=== PATIENT | female | born 1980 | race Caucasian/White ===

== ENCOUNTER 2021-08-03 15:49 | Outpatient (REF) | payer OTHER, SELFPAY ==
--- NOTE | ~2021-08-03 | XR_ITS ---
EXAMINATION: RIGHT FOOT 3 VIEWS LEFT FOOT 3 VIEWS CLINICAL INFORMATION: Bilateral foot pain COMPARISON: None TECHNIQUE: Right foot 3 views Left foot 3 views FINDINGS: Right foot: No focal soft tissue swelling. Mineralization is normal. No abnormal soft tissue calcification. No fracture or malalignment. Plantar calcaneal spur. Left foot: No focal soft tissue swelling. Mineralization is normal. No abnormal soft tissue calcification. Accessory ossicle adjacent to the cuboid. No fracture or malalignment. Plantar calcaneal spur. XR/XR foot RT min 3V IMPRESSION: No fracture or malalignment. Bilateral plantar calcaneal spurs.
--- NOTE | ~2021-08-03 | XR_ITS ---
EXAMINATION: RIGHT FOOT 3 VIEWS LEFT FOOT 3 VIEWS CLINICAL INFORMATION: Bilateral foot pain COMPARISON: None TECHNIQUE: Right foot 3 views Left foot 3 views FINDINGS: Right foot: No focal soft tissue swelling. Mineralization is normal. No abnormal soft tissue calcification. No fracture or malalignment. Plantar calcaneal spur. Left foot: No focal soft tissue swelling. Mineralization is normal. No abnormal soft tissue calcification. Accessory ossicle adjacent to the cuboid. No fracture or malalignment. Plantar calcaneal spur. XR/XR foot LT min 3V IMPRESSION: No fracture or malalignment. Bilateral plantar calcaneal spurs.
[2021-08-03 16:05] LABS: MANUAL DIFF FLAG NO
[2021-08-03 17:10] LABS: Basophils Absolute Auto 0.1 X10*3/uL (0.0-0.2); Basophils Percent Auto 0.9 % (0-2); Eosinophils Absolute Auto 0.2 X10*3/uL (0.0-0.4); Eosinophils Percent Auto 2.2 % (0-4); Hematocrit 37.7 % (37.0-47.0); Hemoglobin 12.7 g/dl (12.0-16.0); Imm Gran Abs Auto 0.01 X10*3/uL (0.00-0.03); Imm Gran Pct Auto 0.1 % (0.0-0.4); Lymphocytes Absolute Auto 3.1 X10*3/uL (1.2-4.9); Lymphocytes Percent Auto 40.3 % (20-40); Mean Corpuscular HGB Conc 33.7 g/dl (31.0-35.0); Mean Corpuscular Hemoglobin 32.9 pg (27.0-33.0); Mean Corpuscular Volume 97.7 fL (80.0-98.0); Mean Platelet Volume 10.1 fL (9.4-12.3); Monocytes Absolute Auto 0.7 X10*3/uL (0.1-1.2); Monocytes Percent Auto 8.9 % (2-11); Neutrophils Absolute Auto 3.6 x10*3/uL (2.0-8.3); Neutrophils Percent Auto 47.6 % (45-73); Platelet Count 384 X10*3/uL (160-400); Red Blood Count 3.86 X10*6/uL (4.20-5.50); Red Cell Distribution Width 13.7 % (11.0-16.0); White Blood Count 7.6 X10*3/uL (4.8-10.8)
[2021-08-03 17:31] LABS: Alanine Aminotransferase 8 U/L (0-31); Albumin Level 4.6 g/dL (3.5-5.0); Alkaline Phosphatase 53 U/L (39-117); Anion Gap 11 (12-20); Aspartate Amino Transferase 16 U/L (5-31); Bilirubin Total 0.3 mg/dL (0.0-1.0); Blood Urea Nitrogen 11 mg/dL (9-16); C Reactive Protein 0.05 mg/dL (< or = 0.50); Calcium 9.5 mg/dL (8.4-10.2); Carbon Dioxide 26 mmol/L (22-29); Chloride 103 mmol/L (96-108); Cholesterol 271 mg/dL; Estimated Glomerular Filt Rate > 60; Glucose Random 81 mg/dL (60-115); Potassium 4.2 mmol/L (3.3-5.1); Sodium 136 mmol/L (135-145); Total Protein 7.4 g/dL (6.5-8.0)
[2021-08-03 17:56] LABS: Vitamin B12 190 pg/mL (200-900)
== END 2021-08-03 15:50 | disposition home or self-care (01) ==
LOC: HO.LAB 15:49
PROVIDERS: PCP Internal Medicine; Visit Provider Internal Medicine
DX: M79.672 Pain in left foot (principal); M79.671 Pain in right foot; M54.9 Dorsalgia, unspecified; R63.5 Abnormal weight gain
CPT/HCPCS: 36415; 73630; 80053; 82465; 82550; 82607; 85025; 86140

== ENCOUNTER 2021-08-18 07:55 | Outpatient (REF) | payer OTHER, SELFPAY ==
[2021-08-18 09:23] LABS: Cholesterol 241 mg/dL; HDL Cholesterol 47 mg/dL; LDL Cholesterol Calculated 171 mg/dl; Triglycerides 116 mg/dL
== END 2021-08-18 07:56 | disposition home or self-care (01) ==
LOC: HO.LAB 07:55
PROVIDERS: PCP Internal Medicine; Visit Provider Internal Medicine
DX: E78.00 Pure hypercholesterolemia, unspecified (principal)
CPT/HCPCS: 36415; 80061

== ENCOUNTER 2021-10-06 08:51 | Outpatient (REF) | payer OTHER, SELFPAY ==
--- NOTE | ~2021-10-06 | MM_ITS ---
EXAMINATION: MM SCREENING DIGITAL BREAST TOMOSYNTHESIS, BILATERAL CLINICAL INFORMATION: Screening. Asymptomatic. The lifetime risk of breast cancer based on the Tyrer-Cuzick Model is 7%. COMPARISON: Mammography: 07/20/2019, 07/06/2018, 09/30/2013 TECHNIQUE: Digital breast tomosynthesis is performed in both the craniocaudal and mediolateral oblique views along with computer-aided detection (CAD). Synthesized 2D images are generated from the tomosynthesis. Additional exaggerated left CC view is provided. FINDINGS: There are scattered areas of fibroglandular density (ACR BI-RADS breast composition Category b). There are no significant masses, abnormal calcifications, or other abnormalities. Parenchymal pattern is similar to prior studies. No developing density. The axilla and skin contours are unremarkable. MM/MM tomosynthesis screening BI IMPRESSION: No mammographic evidence of malignancy. ASSESSMENT: BI-RADS 1: Negative RECOMMENDATION: Routine annual mammography screening. This patient's information was entered into a reminder system with a target due date for their next mammogram.
== END 2021-10-06 08:52 | disposition home or self-care (01) ==
LOC: HO.MAMMO 08:51
PROVIDERS: Visit Provider Internal Medicine
DX: Z12.31 Encounter for screening mammogram for malignant neoplasm of breast (principal)
CPT/HCPCS: 77063; 77067

== ENCOUNTER → 2023-09-22 09:25 | Outpatient (BNVA) | payer OTHER, SELFPAY | PROVIDERS: PCP Internal Medicine; Visit Provider Physician Assistant Medical | DX: S61.215A Laceration without foreign body of left ring finger without damage to nail, initial encounter (principal); W26.8XXA Contact with other sharp object(s), not elsewhere classified, initial encounter; Z23 Encounter for immunization | CPT/HCPCS: 90715; 99204 ==

== ENCOUNTER → 2023-09-24 14:44 | Outpatient (BNVA) | payer OTHER, SELFPAY | PROVIDERS: PCP Internal Medicine; Visit Provider Physician Assistant Medical | DX: S61.215A Laceration without foreign body of left ring finger without damage to nail, initial encounter (principal); W26.8XXA Contact with other sharp object(s), not elsewhere classified, initial encounter; Z77.21 Contact with and (suspected) exposure to potentially hazardous body fluids | CPT/HCPCS: 99213 ==

== ENCOUNTER → 2023-11-05 14:43 | Outpatient (BNVA) | payer OTHER, SELFPAY | PROVIDERS: PCP Internal Medicine | DX: Z77.21 Contact with and (suspected) exposure to potentially hazardous body fluids (principal); Z23 Encounter for immunization | CPT/HCPCS: 84450; 84460; 87389; 99211 ==

== ENCOUNTER → 2023-12-23 14:52 | Outpatient (BNVA) | payer OTHER, SELFPAY | PROVIDERS: PCP Internal Medicine | DX: Z77.21 Contact with and (suspected) exposure to potentially hazardous body fluids (principal) | CPT/HCPCS: 84450; 84460; 86803; 87389; 99211 ==

== ENCOUNTER → 2024-03-23 10:25 | Outpatient (BNVA) | payer OTHER, SELFPAY | PROVIDERS: PCP Internal Medicine | DX: Z77.21 Contact with and (suspected) exposure to potentially hazardous body fluids (principal) | CPT/HCPCS: 84450; 84460; 86803; 87389; 99211 ==

== ENCOUNTER → 2024-03-25 09:17 | Outpatient (BNVA) | payer OTHER, SELFPAY | PROVIDERS: PCP Internal Medicine | DX: Z77.21 Contact with and (suspected) exposure to potentially hazardous body fluids (principal) ==

== ENCOUNTER 2024-09-22 13:22 | Outpatient (REF) | payer OTHER, SELFPAY | END 2024-09-22 13:23 | disposition home or self-care (01) | LOC: HO.MAMMO 13:22 | PROVIDERS: PCP Internal Medicine; Visit Provider Internal Medicine | DX: Z12.31 Encounter for screening mammogram for malignant neoplasm of breast (principal) | CPT/HCPCS: 77063; 77067 ==

== ENCOUNTER → 2024-09-22 13:45 | Outpatient (BNV) | payer OTHER, SELFPAY | PROVIDERS: PCP Internal Medicine; Visit Provider Internal Medicine | DX: Z12.31 Encounter for screening mammogram for malignant neoplasm of breast (principal) | CPT/HCPCS: 77063; 77067 ==

== ENCOUNTER 2025-03-21 09:59 | Outpatient (AMB) | payer OTHER, SELFPAY ==
--- NOTE | 2025-03-21 09:46 | A.OFFPC_ITS ---
Vital Signs 03/21/25 10:07 Height 5 ft 1.42 in Weight 77.111 kg BMI 31.7 BP 134/88 Blood Pressure Location Lt brachial Position Sitting Respiration 18 Pulse 81 Pulse Source Pulse Oximeter Temp 98.4 F Temp Source Temporal Artery Scan Pulse Oximetry (%) 97 Oxygen Delivery Method Room Air Intake Visit Reasons: New Patient / MARIALUISA / Dr Alejandra - see comments Salicylic Acid Blender Required: No Accompanied by: Self / Same As Patient Allergies Penicillins Allergy (Mild, Unverified 02/17/20 16:32) RASH penicillin V Allergy (Unknown, Verified 06/24/18 00:00) Medication List - Last Reconciled 03/21/25 by DEMARCO Mar acetaminophen ER (Tylenol 8 Hour) 650 mg PO Q12H albuterol sulfate 90 mcg/actuation (Ventolin HFA) inhalation Tobacco use date assessed: 03/21/25 Dental Screening Dental Screen Date: 03/21/25 Did you have a dental visit in the last 12 months?: No Did you have a dental problem in the last 6 months where you did not have access to dental care?: No Was dental information given to patient?: Patient has dentist HPI HPI Comments History of Present Illness Details 45-year-old female with history of asthm a who is a current everyday cigarette smoker presenting to the office today for management of chronic conditions, to establish care, and for annual physical exam. She has not been seen by prior PCP in about 3 years. 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 Not always following a healthy diet. Reports she does not eat much during the day and then will eat more at bedtime. She denies any alcohol use. Currently smoking 5 cigarettes per day, down from 1/2 pack per day. She has been smoking for 30 years and is trying to quit entirely. Does smoke marijuana but no illicit drug use. Asthma-had viral upper respiratory infection about 3 weeks ago. She presented to an urgent care who prescribed prednisone as well as azithromycin. Reports she felt better for about 1 day and then symptoms recurred. She is now having a productive cough with wheezing and dyspnea. No fevers, chills, sore throat, sinus pressure, congestion. She is experiencing sharp left-sided chest pains but no retrosternal chest pressure, lightheadedness, palpitations. FH CAD- concerned about family history of coronary artery disease. Reports mother, maternal grandmother experience fatal GA at age 52. Reports her maternal uncle also experienced GA during his 50s. She denies any anginal chest pains. Interested in referral to Cardiology. Reports she was also diagnosed with a ?hole in her heart? in childhood but did not require follow-up on this. Bilateral facial telangiectasia-interested in referral to Dermatology. Does not consume alcohol Chronic Bilateral low back pain/R sciatica- ongoing years. Did go to physical therapy several years ago without any improvement. Has tried ibuprofen, Tylenol, lidocaine patches. No positive effect. No paresthesias, weakness, saddle anesthesia, bowel/bladder dysfunction. Health Maintenance: Overdue for unattended ground sensor specialist exam-has been years Overdue for mammogram Overdue for colon cancer screening Wears sunscreen with prolonged sun exposure- interested skin cancer screening Overdue for dental exam Due for flu vax ROS: General: No fevers, malaise, unintentional weight loss HEENT: No blurred vision, diplopia. No sore throat, nasal congestion, rhinorrhea, sinus pain, ear pain. No hearing loss Neck - no adenopathy Cardiovascular: No chest pain, palpitations, or leg edema Respiratory: No shortness of breath, wheezing, cough Breast: No pain, palpable lumps, nipple inversion GI: No dysphagia, odynophagia, globus sensation. No abdominal pain, nausea, vomiting, diarrhea, constipation, melena, hematochezia : No dysuria, hematuria, increased urinary frequency, decreased urinary output. 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 No AH/VH. No SI/HI Skin: No rashes or lesions EXAM: Constitutional - Awake and Alert, No apparent distress Eyes - PERRLA, EOMI. Anicteric Ears - external ears normal, canals clear, TMs intact and pearly matta with good cone of light Nose- septum midline, nares clear, no sinus tenderness Mouth/throat- mucosa moist, tongue and uvula midline, no erythema/edema or tonsillar adenopathy. Neck-trachea midline, thyroid symmetric without palpable nodules, no adenopathy Cardiovascular - S1S2, RRR, No edema Respiratory - Normal lung expansion, Normal respiratory effort, No respiratory distress, rhonci/wheezing RLL Gastrointestinal - NT / ND; +BS; No rebound or guarding - No CVA tenderness Extremities - no calf tenderness bilaterally, no swelling Musculoskeletal - Normal inspection, normal ROM Skin - Warm/Dry, no concerning lesions. Telangectasias bilateral face Neurological - Alert & oriented x3, CN II-XII in tact, 5/5 strength BUE and BLE, 2+ patellar reflexes, sensation intact Psychological - Appropriate affect [facility] Medical History (Updated 03/21/25 @ 10:54 by DEMARCO Mar) Asthma Surgical History (Updated 03/21/25 @ 10:33 by DEMARCO Mar) No pertinent past surgical history Family History (Updated 03/21/25 @ 10:34 by DEMARCO Mar) Mother CAD (coronary artery disease), Onset Age: 52 Maternal Grandmother CAD (coronary artery disease), Onset Age: 52 Maternal Uncle CAD (coronary artery disease), Onset Age: 55 Father Pancreatic cancer Dementia Social History Housing: Apartment Patient Tobacco Use Status: Current everyday Tobacco user Cigarettes Per Day: 5 Years Smoked: 30 years e-Cigarette/Vaping Use: Currently Using service: No Current occupational status: employed Current occupation: [employer] Questionnaire PHQ-9 Over the last 2 weeks, how often have you been bothered by any of the following problems? 1. Little interest or pleasure in doing things: more than half the days 2. Feeling down, depressed, or hopeless: more than half the days 3. Trouble falling or staying asleep, or sleeping too much: several days 4. Feeling tired or having little energy: more than half the days 5. Poor appetite or overeating: more than half the days 6. Feeling bad about yourself - or that you are a failure or have let yourself or your family down: several days 7. Trouble concentrating on things, such as reading the newspaper or watching television: several days 8. Moving or speaking so slowly that other people could have noticed. Or the opposite - being so fidgety or restless that you have been moving around a lot more than usual: not at all 9. Thoughts that you would be better off or of hurting yourself in some way: not at all Total score: 11 Source: Developed by Drs. Kirill Dubon, Odette Lu, Scott Kovacs and colleagues, with an educational bo from [employer]. Thrive Questionnaire Date Thrive assessed: 03/21/25 I am a: Patient What is your living situation today?: I have a steady place to live Within the past 12 months, did the food you bought not last and you didn't have the money to get more?: Never true Within the past 12 months, did you worry whether your food would run out before you got money to buy more?: Never true Do you have trouble paying for medicines?: No Do you have trouble getting transportation to medical appointments?: No Do you have trouble paying your heating and electricity bill?: No Do you have trouble taking care of your child, family member or friend?: No Do you have trouble with day-to-day activities such as bathing, preparing meals, shopping, managing finances, etc.?: No Are you currently unemployed and looking for a job?: No Are you interested in more education?: No THRIVE Score: 0 AUDIT C Alcohol Use Questionnaire (AUDIT-C) 1. How often do you have a drink containing alcohol?: Never 3. How often do you have six or more drinks on one occasion?: Never Total Score: 0 CELE-7 AMB Questionnaire CELE-7 Date CELE - 7 assessed: 03/21/25 Feeling nervous, anxious, or on edge: 1 = Several days Not being able to stop or control worryin = Several days Worrying too much about different things: 1 = Several days Trouble relaxin = Several days Being so restless that it is hard to sit still: 1 = Several days Becoming easily annoyed or irritable: 1 = Several days Feeling afraid as if something awful might happen: 1 = Several days Total CELE-7 score (0-4 normal; 5-9 mild; 10-14 moderate; 15-21 severe): 7 Source: Developed by Drs. Kirill Dubon, Odette Lu, Scott Kovacs and colleagues, with an educational bo from [employer]. Physical exam (Primary Care) Vital Signs: Last Vital Signs Temp 98.4 F 03/21/25 10:07 Pulse 81 03/21/25 10:07 Resp 18 03/21/25 10:07 BP 134/88 10/20/25 10:07 Pulse Ox 97 03/21/25 10:07 Oxygen Delivery Method Room Air 03/21/25 10:07 BMI result Body Mass Index 31.7 Tobacco/Smoking Status: Tobacco use Status Tobacco use date assessed 03/21/25 03/21/25 09:47 Patient Tobacco Use Status Current everyday Tobacco 03/21/25 10:10 e-Cigarette/Vaping Use Currently Using 03/21/25 10:10 PHQ-9: PHQ-9 Score PHQ-9: Total score 11 03/21/25 10:30 Thrive Assessment: Date of Thrive Assessment Date Thrive assessed 03/21/25 03/21/25 10:23 Coding Level of Care Code Est Pt Level 4 (00593) New Pt Prev Care 40-64y(37373) Diagnoses Routine medical exam Z00.00 Productive cough R05.8 Chest pain R07.9 Sciatica M54.30 Chronic low back pain M54.50; G89.29 Assessment & Plan Assessment & Plan (1) Routine medical exam: Code(s): Z00.00 - Encounter for general adult medical examination without abnormal findings Category: Medical Plan: 45 year old female presenting for annual physical exam. Plan as below (2) Productive cough: Code(s): R05.8 - Other specified cough Category: Medical Plan: Xr chest ordered. Zpak and prednisone prescribed. Continue albuterol prn. If still symptomatic consider inhaler adjustment and PFT. Cough syrup prn (3) Chest pain: Code(s): R07.9 - Chest pain, unspecified Category: Medical Plan: Chest pain seems atypical. However, given strong family history, stress test ordered and is referred to cardiology for further evaluation (4) Sciatica: Code(s): M54.30 - Sciatica, unspecified side Category: Medical Plan: Referred to ortho. Add meloxicam and gentle exercise. Given asymmetry of the shoulders, also recommend chiropractic evaluation (5) Chronic low back pain: Code(s): M54.50 - Low back pain, unspecified; G89.29 - Other chronic pain Category: Medical Plan: As above Plan Routine screening labs as ordered below Referred for mammogram, Pap smear, cologuard Continue following for annual skin exams and use sun protection-referred for evaluation Annual eye exams Wear seat belt in car Recommend regular exercise and healthy diet Follow-up in the office in 6 months Orders: Orders Basic Metabolic Panel Today Z00.00 - Encounter for general adult medical examination without abnormal findings Complete Blood Count Auto Diff Today Z00.00 - Encounter for general adult medical examination without abnormal findings Lipid Panel Today Z00.00 - Encounter for general adult medical examination without abnormal findings Liver Panel Today Z00.00 - Encounter for general adult medical examination without abnormal findings Vitamin D 25-OH Total Today Z00.00 - Encounter for general adult medical examination without abnormal findings CA echo stress exercise Today R05.8 - Other specified cough, R07.9 - Chest pain, unspecified, Z00.00 - Encounter for general adult medical examination without abnormal findings, Z82.49 - Family history of ischemic heart disease and other diseases of the circulatory system XR chest 2V Today R05.8 - Other specified cough Hemoglobin A1c Today Z00.00 - Encounter for general adult medical examination without abnormal findings TSH reflex Free T4 Today Z00.00 - Encounter for general adult medical examination without abnormal findings MM tomosynthesis screening BI Today Z12.31 - Encounter for screening mammogram for malignant neoplasm of breast Referrals Cardiology Referral R07.9 - Chest pain, unspecified, Z82.49 - Family history of ischemic heart disease and other diseases of the circulatory system BUSINESS RECORDS MANAGER Referral Z12.4 - Encounter for screening for malignant neoplasm of cervix Cologuard Test Z12.11 - Encounter for screening for malignant neoplasm of colon, Z12.12 - Encounter for screening for malignant neoplasm of rectum Orthopedics Referral G89.29 - Other chronic pain, M54.30 - Sciatica, unspecified side, M54.50 - Low back pain, unspecified Dermatology Referral I78.1 - Nevus, non-neoplastic, Z12.83 - Encounter for screening for malignant neoplasm of skin Medications: New meloxicam 15 mg PO DAILY 90 tabs 0RF prednisone 40 mg (2 x 20 mg) PO DAILY 10 tabs 0RF azithromycin (Zithromax Z-Virgil) For 250 mg dose pack: take 500 mg today (day 1), then 250 mg for 4 days (days 2-5) PO 6 tabs 0RF
[2025-03-21 10:07] VITALS: BP 134/88; PULSE 81; RESP 18; TEMP 36.9; O2SAT 97; BMI 31.7
== END 2025-03-21 11:40 | disposition home or self-care (01) ==
PROVIDERS: PCP Physician Assistant; Visit Provider Physician Assistant
DX: Z00.00 Encounter for general adult medical examination without abnormal findings (principal); R05.8 Other specified cough; R07.9 Chest pain, unspecified; M54.30 Sciatica, unspecified side; G89.29 Other chronic pain; M54.50 Low back pain, unspecified

== ENCOUNTER 2025-03-21 09:59 | Outpatient (REF) | payer OTHER, SELFPAY ==
--- NOTE | ~2025-03-21 | XR_ITS ---
EXAMINATION: XR CHEST 2 VIEWS HISTORY: R05.8 - Other specified cough COMPARISON: Comparison is made with the prior examination dated 02/27/2016. FINDINGS: PA and lateral views of the chest are submitted. The lungs are expanded and clear. There is no pleural effusion, pneumothorax, or pulmonary vascular congestion. The heart is normal in size. The bones are intact. XR/XR chest 2V IMPRESSION: No acute cardiopulmonary abnormality. Electronically signed by: Kirill Reilly MD 03/21/2025 11:38 AM EDT
== END 2025-03-21 10:00 | disposition home or self-care (01) ==
LOC: HO.XRAY 09:59
PROVIDERS: PCP Internal Medicine; Visit Provider Physician Assistant
DX: Z00.00 Encounter for general adult medical examination without abnormal findings (principal); R05.8 Other specified cough; R07.9 Chest pain, unspecified; M54.30 Sciatica, unspecified side; M54.50 Low back pain, unspecified; G89.29 Other chronic pain; Z79.899 Other long term (current) drug therapy
CPT/HCPCS: 71046; 99212; 99386

== ENCOUNTER 2025-03-21 11:08 | Outpatient (REF) | payer OTHER, SELFPAY ==
[2025-03-21 12:01] LABS: MANUAL DIFF FLAG NO
[2025-03-21 12:09] LABS: Hematocrit 38.2 % (37.0-47.0); Hemoglobin 13.1 g/dl (12.0-16.0); Imm Gran Abs Auto 0.02 X10*3/uL (0.00-0.03); Imm Gran Pct Auto 0.2 % (0.0-0.4); Lymphocytes Absolute Auto 3.1 X10*3/uL (1.2-4.9); Mean Corpuscular HGB Conc 34.3 g/dl (31.0-35.0); Mean Corpuscular Hemoglobin 32.6 pg (27.0-33.0); Mean Corpuscular Volume 95.0 fL (80.0-98.0); NRBC Abs Auto 0.000 X10*3/uL (0.0-0.012); NRBC Pct Auto 0.0 /100WBC (0.0-0.2); Platelet Count 453 X10*3/uL (160-400); Red Blood Count 4.02 X10*6/uL (4.20-5.50); White Blood Count 11.2 X10*3/uL (4.8-10.8)
[2025-03-21 12:27] LABS: Alanine Aminotransferase 7 U/L (0-31); Albumin Level 4.3 g/dL (3.5-5.0); Alkaline Phosphatase 52 U/L (39-117); Anion Gap 11 (12-20); Aspartate Amino Transferase 19 U/L (5-31); Blood Urea Nitrogen 7 mg/dL (9-16); Calcium 8.9 mg/dL (8.4-10.2); Carbon Dioxide 28 mmol/L (22-29); Chloride 102 mmol/L (96-108); Cholesterol 231 mg/dL (<200); Estimated Glomerular Filt Rate > 60; HDL Cholesterol 47 mg/dL (>40); Potassium 4.3 mmol/L (3.3-5.1); Sodium 137 mmol/L (135-145); Total Protein 6.7 g/dL (6.5-8.0); Triglycerides 153 mg/dL (<150)
--- OUTSIDE RECORDS SUMMARY | 2025-03-21 13:36 | XMS_ITS ---
Author Name [facility] Organization Unknown Encounters Encounter Type Encounter Reason Primary Diagnosis Location Date [facility]) 03/12/2025 Care Team Organization Name Specialty Phone Email Start Date End [facility] 03[facility]2025
== END 2025-03-21 11:09 | disposition home or self-care (01) ==
LOC: HO.10HDL 11:08
PROVIDERS: Visit Provider Physician Assistant
DX: Z00.00 Encounter for general adult medical examination without abnormal findings (principal)
CPT/HCPCS: 36415; 80048; 80061; 80076; 82306; 83036; 84443; 85025

== ENCOUNTER → 2025-03-21 11:20 | Outpatient (BNV) | payer OTHER, SELFPAY | PROVIDERS: PCP Internal Medicine; Visit Provider Radiology Diagnostic Radiology | DX: R05.8 Other specified cough (principal) | CPT/HCPCS: 71046 ==

== ENCOUNTER → 2025-04-07 10:14 | Outpatient (REF) | payer OTHER, SELFPAY ==
--- NOTE | 2025-04-07 10:17 | CA_ITS ---
Acquisition Time: 2025-04-07 10:22:15 Total Exercise Time: 00:09:30 Test Indications: Dyspnea CP Medications: ALBUTEROL INHALER Protocol: TACO Max HR: 155 BPM 89% of Pred: 173 BPM Max BP: 164/88 mmHG Max Work Load: 10.9 METS Exercise stress test with exercise 9 min 30 secs of Taco Protocol, achieving 89% MPHR, with reports of SOB, no chest pain, mild dizziness with quick stop to treadmill that resolved quickly, with isolated PVCs, with normotensive response to exercise. Without any EKG changes meeting criteria for ischemia. In recovery, breathing returned to baseline. Echo images obtained by tech at rest and post peak exercise. Definity contrast utilized. Test reviewed with Dr. Isabel. Referred By: Kalie Wilder Electronically Signed By: Mark Anthony Pizano
== END ==
LOC: HO.CARD 10:14
PROVIDERS: PCP Physician Assistant; Visit Provider Physician Assistant
DX: Z00.00 Encounter for general adult medical examination without abnormal findings (principal); R07.9 Chest pain, unspecified; R06.00 Dyspnea, unspecified; Z82.49 Family history of ischemic heart disease and other diseases of the circulatory system; Z79.899 Other long term (current) drug therapy
CPT/HCPCS: 93350; Q9957

== ENCOUNTER → 2025-04-07 10:17 | Outpatient (BNV) | payer OTHER, SELFPAY | PROVIDERS: PCP Physician Assistant | DX: I49.3 Ventricular premature depolarization (principal); R06.02 Shortness of breath | CPT/HCPCS: 93016; 93018; 93350; 93352 ==